=== PATIENT | female | born 1985 | race Caucasian/White ===

== ENCOUNTER 2016-06-08 14:52 | Emergency (ER) | payer MEDICAID ==
[~2016-06-08] VITALS: Ht 149.9 cm; Wt 54.0 kg
[2016-06-08 15:25] VITALS: BP 124/66
--- NOTE | 2016-06-08 16:27 | NUR ---
Patient ambulated to bed 08.
--- NOTE | 2016-06-08 16:31 | NUR ---
DR. YAKOV MOREAL PATIENT AT BEDSIDE.
--- NOTE | 2016-06-08 16:40 | NUR ---
PATIENT PRESENTS TO ED WITH C/O LEFT GREAT TOE PAIN FROM INGROWN TOENAIL. DENIES N/V/D; SKIN IS PINK/WARM/DRY; AAOX4 WITH EVEN AND STEADY GAIT; LUNGS CLEAR BL; HR EVEN AND REGULAR; PT DENIES ANY FEVER, CP, SOB, OR COUGH AT THIS TIME; PATIENT STATES PAIN OF 9/10 AT THIS TIME; VSS; PATIENT POSITIONED FOR COMFORT; HOB ELEVATED; BEDRAILS UP X2; BED DOWN. ER MD MADE AWARE OF PT STATUS.
[2016-06-08 17:05] VITALS: BP 100/49
--- NOTE | 2016-06-08 17:05 | NUR ---
Patient discharged with v/s stable. Written and verbal after care instructions given and explained. Patient alert, oriented and verbalized understanding of instructions. Ambulatory with steady gait. All questions addressed prior to discharge. ID band removed. Patient advised to follow up with PMD. Rx of KELFEX 250MG CAPSULE, 1 CAP, 4 TIMES A DAY, BY MOUTH AND TYLENOL 325MG, 1 TO 2 TABS, TID, PRN FOR PAIN given. Patient educated on indication of medication including possible reaction and side effects. Opportunity to ask questions provided and answered.
== END 2016-06-08 17:05 | disposition home or self-care (01) ==
LOC: MED 15:10
DX: L03.032 Cellulitis of left toe (principal); R03.0 Elevated blood-pressure reading, without diagnosis of hypertension